=== PATIENT | male | born 1975 | race Caucasian/White ===

== ENCOUNTER 2020-11-05 17:16 | Inpatient (IN) | payer OTHER ==
[~2020-11-05] VITALS: Ht 188 cm; Wt 114.0 kg
[~2020-11-05 17:16] MED LIST: ABILIFY30 MG PO; ASPIR-LOW81 MG PO; BUSPIRONE HCL10 MG PO; CELEXA20 MG PO; DIVALPROEX SOD500 M1 PO; FLOMAX0.4 MG PO; MELATIN3 MG PO; NORCO 10-325 T1 EACH PO; OMEPRAZOLE20 M1 PO; POTASSIUM CHLO20 ME1 PO; PROSCAR5 MG PO
--- NOTE | 2020-11-05 20:15 | NUR ---
PATIENT ARRIVED VIA STRETCHER WITH CO X2. 5 POINT CORRECTIONAL RESTRAINTS. PATIENT DROWSY. ABLE TO MOVE OVER TO BED WITH MONIMAL ASSIST. PATIENT IS ABLE TO GIVE HIS NAME. SPEECH IS SLURRED. VS STABLE. TOLERATING ROOM AIR. SEIZURE PRECAUTIONS IN PLACE.
--- NOTE | 2020-11-05 21:31 | NUR ---
LABS DRAWN. PATIENT HAS LARGE AMOUNTS OF DILUTE URINE OUT IN CERVANTES, SAMPLE COLLECTED. PATIENT IS DROWSY, WAKES TO VOICE BUT IS LETHARGIC AND NOT ANSWERING QUESTIONS. VS STABLE. CHEST XRAY DONE. IV POTASSIUM REPLACEMENT STARTED PER ORDER, SITE WNL.
--- NOTE | 2020-11-05 22:30 | NUR ---
PATIENT CONTINUES TO SLEEP SOUNDLY AND SNORE. VS SATBLE. TOLERATING ROOM AIR. LARGE AMOUNTS OF DILUTE URINE NOTED. UPDATE GIVEN TO .
--- NOTE | 2020-11-06 00:37 | NUR ---
PATIENT CONTINUES TO SLEEP SOUNDLY. VS STABLE. PATIENT SNORES LOUDLY. RECOILS FROM STERNAL RUB BUT DOES NOT OPEN HIS EYES TO COMMANDS. ALLOWED PATIENT TO REST. CERVANTES CONTINUES TO PUT OUT LARGE AMOUNTS OF CLEAR URINE. IV FLUIDS PER ORDER, SITE WNL.
--- NOTE | 2020-11-06 02:18 | NUR ---
PATIENT WOKE BREIFLY. WAS ORIENTED TO SELF ONLY. REORIENTED TO LOCATION. PATIENT STATES HE REMEMBERS NOW THAT HE CAME TO THE HOSPITAL AND REMEMBERED HE HAD A CERVANTES. PATIENT REQUEST TO HAVE HIS CUFFS REMOVED. CO REPORTED THAT NOT AN OPTION. PATIENT IS UPSET AND CLOSES HIS EYES, NOT ANSWERING ANY MORE QUESTIONS. CERVANTES EMPTIED FOR ANOTHER LARGE AMOUNT OF DILUTE URINE. ALL IV FLUIDS FINISHED AND LABS HAVE BEEN DRAWN. VS STABLE.
--- NOTE | 2020-11-06 03:00 | NUR ---
DISCUSSED LAB FINDINGS WITH MD. GLUCOSE ON LABS WAS LOW, VERIFIED WITH FINGER STICK. PATIENT AWAKE BUT DROWSY AND INAPPROPRIATE. OFFICE ABLE TO ASSIST PATIENT TO DRINK SOME APPLE JUICE. MD PLACED ORDERS FOR IV FLUIDS AND DESMOPRESSIN IV.
--- NOTE | 2020-11-06 03:54 | NUR ---
PATIENT ABLE TO TAKE PO MEDS WITHOUT ISSUE. COMPLAINS OF RIGHT ARM PAIN AND REQUEST MASSAGE. PRN TYLENOL PROVIDED. ENCOURAGED PATIENT TO CHANGE POSITION ABLE. OFERED SECOND PILLOW. PATIENT FELL ASLEEP AGAIN SOON AFTER CONVERSATION. ALLOWED PATIENT TO REST. IV FLUIDS PER ORDER, SITE WNL.
--- NOTE | 2020-11-06 07:44 | NUR ---
REPORT RECEIVED FROM RN LESLEY. PT AWAKE AND COOPERATIVE WITH ASSESSMENT. GUARDS IN ROOM. INSTUCTED PT NOT TO TUG ON CERVANTES THERE IS A LITTLE PINK IN TUBE AND WAS WITNESSED TUGGING ON CERVANTES SEVERAL TIMES. DENIES PAIN. ABLE TO ANSWER ALL NEURO QUESTIONS APPROPRIATLY. LUNGS CLEAR. SHACKLES IN PLACE X4, NO REDNESS NOTED. NO ABD TENDERNESS.
--- NOTE | 2020-11-06 08:24 | NUR ---
v/s done , breakfast given no other needs at this time. 2 Guards in room with pt.
--- NOTE | 2020-11-06 08:24 | NUR ---
pt started vomiting, RN notified
--- NOTE | 2020-11-06 08:25 | NUR ---
PT SAT UP IN BED TO DRINK BREAKFAST AND GOT NAUSEOUS. 300ML EMESIS OUT. PT THEN IMMEDIETLY WANTED TO EAT HIS JELLO. ADVISED AGAINST. NEW GUARDS IN ROOM. ATTENTIVE AND HELPING WITH PT.
--- NOTE | 2020-11-06 09:19 | NUR ---
PT SLEEPING, SNORING. GUARDS IN ROOM.
--- NOTE | 2020-11-06 10:13 | NUR ---
ASSISTED GUARDS TO CHANGE RESTRAINTS TO SOFTER WITH MORE ROM. PT SITTING ON SIDE OF BED WITH NO FURTHER NAUSEA.
--- NOTE | 2020-11-06 11:36 | NUR ---
PATIENT IS NORMALLY INDEPENDENT AT FACILITY. USES NO DME. PLAN WILL BE FOR DISCHARGE [facility] AT DISCHARGE.
--- NOTE | 2020-11-06 11:44 | NUR ---
REMOVED PT CERVANTES, TOLERATED WELL. INSTRUCTED TO CALL NOW TO GET OUT OF BED TO URINATE. D5 STILL INFUSING THE 850. GUARDS IN ROOM.
--- NOTE | 2020-11-06 14:56 | NUR ---
Pt states he needs to void, up to bathroom and is steady on feet. States he is unable to void and returns to bed. Requests to get up again as he needs to have a bowel movement, to bathroom steady on feet with [employer] officers at his side.
--- NOTE | 2020-11-06 16:21 | NUR ---
IN TO CHECK ON PT, DO ASSESSMENT AND GIVE PO POTASSIUM. PT GIVEN CRACKERS WITH PILLS. HUNGRY, REQUESTING TO EAT, INFORMED OF ADVANCED DIET, WILL ORDER DINNER.
--- NOTE | 2020-11-06 17:05 | NUR ---
REPORT CALLED TO NING RAY.
--- NOTE | 2020-11-06 17:11 | NUR ---
PT UP TO VOID 150ML DARK CONCENTRATED URINE, DR RANKIN AWARE.
--- NOTE | 2020-11-06 17:23 | NUR ---
PT CALLS TO ASK FOR PAIN MEDICINE FOR A 10/10 HEADACHE. ASKED IF IT JUST STARTED HE SAID "NO, ITS BEEN GOING ON ALL DAY, I JUST DIDNT SAY NOTHING," 500MG PO TYLENOL GIVEN PRN.
--- NOTE | 2020-11-06 17:40 | NUR ---
PT TRANSFERRED TO ROOM 125 WITH NING RAY.
--- NOTE | 2020-11-06 17:45 | NUR ---
pt ARRIVED TO MS FLOOR FROM CCU VIA BED. 2 GUARDS IN ROOM WITH pt. pt EATING DINNER. CALL LIGHT WITHIN REACH.
[2020-11-06] MEDS ORDERED: PHARBEDRYL50 MG PO (17:57)
[2020-11-06] MEDS ORDERED: ADULT ASPIRIN R81 MG PO (17:58)
[2020-11-06] MEDS ORDERED: VOLTAREN100 GM TOP (17:59)
[2020-11-06] MEDS ORDERED: CARDURA1 MG PO (17:59)
[2020-11-06] MEDS ORDERED: PROSCAR5 MG PO (18:00)
[2020-11-06] MEDS ORDERED: OMEPRAZOLE20 MG PO (18:01)
[2020-11-06] MEDS ORDERED: NASACORT10.8 ML NAS (18:02)
[2020-11-06] MEDS ORDERED: TRIAMCINOLONE A15 G1 TOP (18:03)
--- NOTE | 2020-11-06 18:03 | NUR ---
MED REC COMPLETE
--- NOTE | 2020-11-06 18:37 | NUR ---
IN ROOM TO EMPTY URINE. 100ML CLEAR YELLOW URINE. PT REQUESTS MORE DINNER. SECOND DINNER BOX ORDERED. EDUCATED PT ON FLUID RESTRICTION.
--- NOTE | 2020-11-06 19:14 | EKG ---
[facility] [address] [place], [place] [address] Signed Normal sinus rhythm Left anterior fascicular block Abnormal ECG No previous ECGs available Confirmed by MILANA RANKIN MD ([id number]) on 11/06/2020 7:14:21 PM Electronically Signed By: MIALNA RANKIN MD 11/06/201913 PATIENT NAME: LYNDON MORSE Electrocardiogram DATE OF : 77 PHYSICIAN: MILANA RANKIN MD REPORT #: [id number] REPORT IS CONFIDENTIAL AND NOT TO BE RELEASED WITHOUT AUTHORIZATION
--- NOTE | 2020-11-06 19:15 | NUR ---
CHARGE NURSE REPORT RECEIVED FROM DAY CHARGE. GUARDS PRESENT IN ROOM WITH PT.
--- NOTE | 2020-11-06 19:30 | NUR ---
REPORT RECEIVED FROM CORY BARCLAY. pt RESTING IN BED. GUARDS AT BEDSIDE.
--- NOTE | 2020-11-06 20:11 | NUR ---
pt RESTING IN BED AWAKE. ALERT AND ORIENTED. COMPLAINS OF 10/10 MUSCLE PAIN, STATES IT HELPS WHEN I GET UP AND MOVE. ASSESSMENT COMPLETE. CSM INTACT BUE, BLE. REDENNED AREA NOTED ON BACK, pt STATES "MAYBE FROM FALL". WATER EXCHANGED FOR SPRITE PER REQUEST. IV SITES SL WNL. CALL LIGHT IN REACH.
--- NOTE | 2020-11-06 20:17 | NUR ---
THIS GROUND CREW LINESMAN ASSISTED PRIMARY RN INDRA. V/S AND I&O'S TAKEN AND RECORDED.
--- NOTE | 2020-11-06 22:10 | NUR ---
pt SLEEPING, AWAKENS TO VOICE FOR MEDICATION ADMINISTRATION. UPON AWAKENING RATES PAIN 10/10, IN MUSCLES. PRN TYLENOL ADMINISTERED. INDENDENT TO RESTROOM FOR VOID. URINE EMPTIED. BACK IN BED. GUARDS IN ROOM. CALL LIGHT IN REACH.
--- NOTE | 2020-11-07 01:28 | NUR ---
pt SLEEPING, AWAKENS TO VOICE FOR SCHEDULED MEDICATION ADMINISTRATION. pt RATES PAIN 10/10 "MY MUSCLES HURT WHEN I GET UP, I CAN BARELY WALK". pt RESTING IN BED. ASSESSMENT COMPLETE. URINE EMPTIED FROM HAT AND URINAL AT THIS TIME. CRACKERS PROVIDED REQUESTED. GUARDS IN ROOM.
--- NOTE | 2020-11-07 03:49 | NUR ---
CHECKED ON pt. RESTING IN BED ON RIGHT SIDE. BREATHING EQUAL AND UNLABORED. LIGHTS OFF IN ROOM. GUARDS IN ROOM.
--- NOTE | 2020-11-07 06:46 | NUR ---
CHECKED ON pt. AWAKE, ALERT, SITTING AT SIDE OF BED. pt C/O 8/10 MUSCLE PAIN. PRN TYLENOL ADMINISTERED. GUARDS IN ROOM. NO ADDITIONAL REQUESTS AT THIS TIME.
--- NOTE | 2020-11-07 07:22 | NUR ---
PT RESTING EYES CLOSED AT TIME OF SHIFT EXCHANGE GAURDS PRESENT X2
--- NOTE | 2020-11-07 08:22 | NUR ---
PT UP TO TOILET STEADY ON HIS FEET. RETURNS TO BED EATS 100% OF MORNING MEAL.
--- NOTE | 2020-11-07 10:47 | NUR ---
DR RANKIN IN TO SEE THIS PT ADVISES HIM HOW MUCH H20 HE SHOULD DRINK DAILY AND REASONS FOR NOT DRINKING MORE. PT VERBALIZES UNDERSTANDING
--- NOTE | 2020-11-07 13:00 | NUR ---
Dc summary faxed to [facility] and Iesha [facility].
== END 2020-11-07 12:07 | disposition home or self-care (01) | DRG 641 ==
LOC: ED 17:16 → CCU 19:27 → MS 11-06 17:44
PROVIDERS: ADMIT Internal Medicine; ATTEND Internal Medicine
DX: E87.1 Hypo-osmolality and hyponatremia (principal); G40.89 Other seizures; Z20.822 Contact with and (suspected) exposure to COVID-19; F45.8 Other somatoform disorders; I10 Essential (primary) hypertension; F20.9 Schizophrenia, unspecified; N40.1 Benign prostatic hyperplasia with lower urinary tract symptoms; R33.8 Other retention of urine; K21.9 Gastro-esophageal reflux disease without esophagitis; R40.0 Somnolence; D72.829 Elevated white blood cell count, unspecified; E87.6 Hypokalemia; Z87.891 Personal history of nicotine dependence; Z88.0 Allergy status to penicillin; Z88.8 Allergy status to other drugs, medicaments and biological substances; Z79.899 Other long term (current) drug therapy; Z79.82 Long term (current) use of aspirin
CPT/HCPCS: 36415; 70450; 71045; 80048; 80053; 81001; 83735; 83930; 83935; 84550; 85025; 93005; 93010; C9803; J1650; J1953; J2060; J2597; J3480; J7070; J7131; U0003

== ENCOUNTER 2020-11-12 13:56 | Emergency (ER) | payer OTHER ==
[~2020-11-12] VITALS: Ht 188 cm; Wt 113.9 kg
[~2020-11-12 13:56] MED LIST changes: +ADULT ASPIRIN R81 MG PO; +CARDURA1 MG PO; +NASACORT10.8 ML NAS; +OMEPRAZOLE20 MG PO; +PHARBEDRYL50 MG PO; +TRIAMCINOLONE A15 G1 TOP; +VOLTAREN100 GM TOP
--- OUTSIDE RECORDS SUMMARY | 2020-11-12 13:58 | XMS ---
PreManage Notification: LYNDON MORSE Security [employer] Events No recent Security Events currently on file CRITERIA MET - - 2 Visits in 30 Days CARE PROVIDERS There are no care providers on record at this time. Consuelo has no Care Guidelines for this patient. [facility] [facility] NOTE: Visits indicate total known visits. ED/C VISIT TRACKING (12 MO.) 11/12/2020 13:[address] [facility] TYPE: Emergency COMPLAINT: - ALTERED LOC 11/05/2020 17:16 [facility] TYPE: Emergency COMPLAINT: - POSSIBLE SEIZURE INPATIENT VISIT TRACKING (12 MO.) 11/05/2020 19:27 [facility] TYPE: Medical Surgical COMPLAINT: - SYMPTOMATIC HYPONATREMIA DIAGNOSES: - Schizophrenia, unspecified - Other retention of urine - Elevated white blood cell count, unspecified - Hypokalemia - Benign prostatic hyperplasia with lower urinary tract symptoms - Somnolence - Other somatoform disorders - Other terminal manager (current) drug therapy - Allergy status to penicillin - Personal history of nicotine dependence - Gastro-esophageal reflux disease without esophagitis - Essential (primary) hypertension - Other seizures - Allergy status to other drugs, medicaments and biological substances - Hypo-osmolality and hyponatremia - senior care (current) use of aspirin [email or web address]
== END 2020-11-12 17:37 | disposition home or self-care (01) ==
LOC: ED 13:56
DX: F20.9 Schizophrenia, unspecified (principal); Z87.891 Personal history of nicotine dependence; Z88.0 Allergy status to penicillin; Z88.8 Allergy status to other drugs, medicaments and biological substances; Z79.899 Other long term (current) drug therapy
CPT/HCPCS: 70450; 80053; 81001; 83735; 84443; 85025; 99285-25